=== PATIENT | female | born 1945 ===

== ENCOUNTER 2023-05-24 11:15 | Inpatient (IN) | payer OTHER ==
[~2023-05-24] VITALS: Ht 162.6 cm; Wt 0.5 kg
[2023-05-24] MEDS ORDERED: COZAAR100 MG (14:01)
[2023-05-24] MEDS ORDERED: SYNTHROID112 MCG (14:02)
[2023-05-24] MEDS ORDERED: SYNTHROID100 MCG (14:02)
[2023-05-24] MEDS ORDERED: METFORMIN HCL500 M3 (14:02)
[2023-05-24] MEDS ORDERED: ATORVASTATIN CA20 MG (14:03)
[2023-05-24] MEDS ORDERED: NEURO MAX85 GM (14:03)
[2023-05-24] MEDS ORDERED: PROZAC20 MG (14:04)
[2023-05-24] MEDS ORDERED: NASAL MIST126 ML (14:04)
[2023-05-31 07:06] LABS: HEMATOCRIT 36.6 % (36.0-45.00); HEMOGLOBIN 12.2 g/dL (12.0-15.00); MEAN CELL VOLUME 93.5 fL (80.00-100.00); MEAN CORPUSCULAR HEMOGLOBIN 31.2 pg (27.00-32.0); MEAN CORPUSCULAR HGB CONC 33.3 g/dl (32.0-36.0); RED BLOOD COUNT 3.91 M/uL (4.00-6.00); RED CELL DISTRIBUTION WIDTH 13.4 % (11.5-14.5)
[2023-05-31 07:18] LABS: PLATELET COUNT 104 K/uL (150-450)
[2023-05-31] MEDS ORDERED: ELIQUIS2.5 MG PO (08:08)
[2023-05-31] MEDS ORDERED: CEFADROXIL500 MG PO (08:08)
[2023-05-31] MEDS ORDERED: PERCOCET 5-3251 EACH PO (08:08)
[2023-06-01 06:53] LABS: HEMATOCRIT 35.8 % (36.0-45.00); MEAN CELL VOLUME 92.7 fL (80.00-100.00); MEAN CORPUSCULAR HGB CONC 33.4 g/dl (32.0-36.0); RED BLOOD COUNT 3.86 M/uL (4.00-6.00); RED CELL DISTRIBUTION WIDTH 13.5 % (11.5-14.5)
[2023-06-01 07:01] LABS: PLATELET COUNT 105 K/uL (150-450)
== END 2023-06-01 18:44 | DRG 470 ==
LOC: SURG 05-30 05:29 → O/R 05-30 05:29 → SURG 05-30 10:02 → SURH 05-30 11:15 → SURG 06-01 18:44
PROVIDERS: ADMIT Orthopaedic Surgery; ATTEND Orthopaedic Surgery
PROC: 0MNN0ZZ Release Right Knee Bursa and Ligament, Open Approach (ICD-10-PCS; 2023-05-30)
PROC: 0SRC0JZ Replacement of Right Knee Joint with Synthetic Substitute, Open Approach (ICD-10-PCS; principal; 2023-05-30 18:15)
DX: M17.11 Unilateral primary osteoarthritis, right knee (principal); D62 Acute posthemorrhagic anemia; M22.11 Recurrent subluxation of patella, right knee; E11.9 Type 2 diabetes mellitus without complications; I10 Essential (primary) hypertension; Z79.4 Long term (current) use of insulin